=== PATIENT | female | born 1960 | race African-American/Black ===

== ENCOUNTER 2017-06-17 16:37 | Inpatient (IN) | payer OTHER ==
[~2017-06-17] VITALS: Ht 177.8 cm; Wt 81.4 kg
[~2017-06-17 16:37] MED LIST: BENZ1TAB10 PO; CLON0.5T4 PO; INSLAN SQ; LEVO50 PO; PHEN15TA PO; QUET200XR PO; SERT100T12 PO
[2017-06-17 17:03] LABS: GLUCOSE COMMENT 1 Repeated; GLUCOSE COMMENT 2 Doctor Notified; GLUCOSE,POINT OF CARE 593 MG/DL (70-110)
[2017-06-17] MEDS ORDERED: SODIUM CHLORIDE 0.9% 1,000 ML IV ONE (17:45)
[2017-06-17 17:53] LABS: BASOPHILS % (AUTO) 0.2 % (0.0-2.0); EOSINOPHILS % (AUTO) 0.1 % (1.0-6.0); HEMATOCRIT 33.3 % (36-46); HEMOGLOBIN 10.9 g/dL (12.0-16.0); LYMPHOCYTES # (AUTO) 2.1 K/uL (1.0-4.8); LYMPHOCYTES % (AUTO) 13.9 % (22.0-44.0); MEAN CORPUSCULAR HEMOGLOBIN 26.1 pg (26.0-34.0); MEAN CORPUSCULAR HGB CONC 32.8 G/dL (31.0-37.0); MEAN CORPUSCULAR VOLUME 80 fL (80-100); MONOCYTES % (AUTO) 6.6 % (2.0-9.0); NEUTROPHILS # (AUTO) 12.2 K/uL (1.8-7.7); NEUTROPHILS % (AUTO) 79.2 % (40.0-70.0); PLATELET COUNT (AUTO) 563 K/uL (150-450); RED BLOOD CELL COUNT(AUTO) 4.17 MIL/uL (4.00-5.20); WHITE BLOOD COUNT (AUTO) 15.4 K/uL (4.5-11.0)
[2017-06-17 18:16] LABS: ALANINE AMINOTRANSFERASE 11 U/L (12-78); ALBUMIN 2.5 g/dL (3.4-5.0); ANION GAP 12 mmol/L (8-16); ASPARTATE AMINOTRANSFERASE 12 U/L (15-37); BILIRUBIN,TOTAL 0.4 mg/dL (0.1-1.0); CALCIUM, TOTAL 8.5 mg/dL (8.8-10.5); CARBON DIOXIDE 26 mmol/L (22-29); CHLORIDE 87 mmol/L (98-107); CREATININE 0.96 mg/dL (0.60-1.30); GLOMERULAR FILTR. RATE CALC > 60 mL/min (>60); PHOSPHORUS 2.5 mg/dL (2.5-4.9); POTASSIUM 3.1 mmol/L (3.5-5.1); SODIUM SERUM 125 mmol/L (136-145); TOTAL PROTEIN, SERUM 8.1 g/dL (6.4-8.2); UREA NITROGEN, BLOOD 5 mg/dL (7-18)
[2017-06-17 18:27] LABS: LACTIC ACID 2.4 mmol/L (0.4-2.0)
[2017-06-17] MEDS ORDERED: POTASSIUM CHLORIDE 40 MEQ in SODIUM CHLORIDE 0.45% 1,000 ML IV PRN (18:33)
[2017-06-17] MEDS ORDERED: INSULIN REGULAR, HUMAN 100 UNITS in SODIUM CHLORIDE 0.9% 99 ML IV PRN ×2 (18:33)
[2017-06-17] MEDS ORDERED: SODIUM CHLORIDE 0.9% 1,000 ML IV SCH (18:33)
[2017-06-17] MEDS ORDERED: DEXTROSE 5%-0.45% SODIUM CHL 1,000 ML IV PRN (18:33)
[2017-06-17] MEDS ORDERED: SODIUM CHLORIDE 0.45% 1,000 ML IV PRN (18:33)
[2017-06-17] MEDS ORDERED: POTASSIUM CHL 20 MEQ/0.45% NS 1,000 ML IV PRN (18:33)
[2017-06-17] MEDS ORDERED: POTASSIUM CHLORIDE 20 MEQ ER TABLET PO ONE (18:45)
[2017-06-17] MEDS ORDERED: DEXTROSE 50%-WATER 25 GM/50 ML SYRINGE IVP PRN ×2 (18:45→23:30)
[2017-06-17] MEDS ORDERED: POTASSIUM PHOS,M-BASIC-D-BASIC 20 MMOL in SODIUM CHLORIDE 0.45% 500 ML IV PRN (18:45)
[2017-06-17] MEDS ORDERED: INSULIN REGULAR, HUMAN 100 UNITS/ML IVP PRN (18:45)
[2017-06-17] MEDS ORDERED: POTASSIUM CHL 20 MEQ/0.9% NS 1,000 ML IV ONE (19:00)
[2017-06-17 19:46] LABS: REFLEX LACTIC ACID? YES YES
[2017-06-17 20:23] LABS: GLUCOSE COMMENT 2 Doctor Notified; GLUCOSE,POINT OF CARE 406 MG/DL (70-110)
[2017-06-17] MEDS ORDERED: ACETAMINOPHEN 325 MG TABLET PO PRN ×2 (20:45→21:00)
[2017-06-17] MEDS ORDERED: ONDANSETRON HCL 4 MG/2 ML VIAL IVP PRN ×2 (20:45→21:00)
[2017-06-17 20:55] LABS: APPEARANCE,URINE CLOUDY (CLEAR); GLUCOSE, URINE (UA) >=1000 mg/dL (NEGATIVE); KETONES,URINE NEGATIVE (NEGATIVE); LEUKOCYTE ESTERASE ,URINE SMALL (NEGATIVE); OCCULT BLOOD,URINE SMALL (NEGATIVE); PROTEIN,URINE NEGATIVE (NEGATIVE)
[2017-06-17] MEDS ORDERED: MAGNESIUM HYDROXIDE SUSPENSION 30 ML UDCUP PO PRN (21:00)
[2017-06-17 21:01] LABS: ANION GAP 8 mmol/L (8-16); CARBON DIOXIDE 28 mmol/L (22-29); CHLORIDE 90 mmol/L (98-107); CREATININE 0.87 mg/dL (0.60-1.30); GLOMERULAR FILTR. RATE CALC > 60 mL/min (>60); POTASSIUM 3.2 mmol/L (3.5-5.1); SODIUM SERUM 126 mmol/L (136-145); UREA NITROGEN, BLOOD 4 mg/dL (7-18)
[2017-06-17 21:14] LABS: ADD UA MICROSCOPIC YES
[2017-06-17 21:27] LABS: SQUAMOUS EPITHELIAL CELL,UR Rare /LPF (None Seen); WBC,URINE 26-50 /HPF (0-5)
[2017-06-17 21:43] LABS: GLUCOSE COMMENT 1 Doctor Notified; GLUCOSE COMMENT 2 Repeated; GLUCOSE,POINT OF CARE 359 MG/DL (70-110)
[2017-06-17 22:00] VITALS: BP 169/90
[2017-06-17] MEDS: DOCUSATE SODIUM 100 MG CAPSULE PO SCH (22:34)
[2017-06-17 22:47] LABS: ANION GAP 7 mmol/L (8-16); CARBON DIOXIDE 29 mmol/L (22-29); CHLORIDE 94 mmol/L (98-107); CREATININE 0.77 mg/dL (0.60-1.30); GLOMERULAR FILTR. RATE CALC > 60 mL/min (>60); POTASSIUM 3.9 mmol/L (3.5-5.1); SODIUM SERUM 130 mmol/L (136-145); UREA NITROGEN, BLOOD 3 mg/dL (7-18)
[2017-06-17] MEDS ORDERED: POTASSIUM CHLORIDE 20 MEQ ER TABLET PO PRN ×2 (23:45)
[2017-06-17] MEDS ORDERED: POTASSIUM CHL 10 MEQ/WATER 50 ML IV PRN ×2 (23:45)
[2017-06-17] MEDS: HEPARIN SODIUM,PORCINE 5,000 UNITS/ML VIAL SQ SCH (23:57)
[2017-06-17] MEDS: INSULIN ASPART 100 UNITS/ML SQ PRN (23:58)
[2017-06-18] VITALS (9 sets, daily range): BP systolic 110–164; BP diastolic 35–91
[2017-06-18] MEDS ORDERED: MAGNESIUM SULFATE 4 GM/WATER 100 ML IV PRN
[2017-06-18] MEDS ORDERED: MAGNESIUM OXIDE 400 MG TABLET PO PRN
[2017-06-18] MEDS ORDERED: MAGNESIUM SULFATE 2 GM in DEXTROSE 5%-WATER 50 ML IV PRN ×2
[2017-06-18] MEDS: SODIUM CHLORIDE 0.9% 1,000 ML IV SCH ×2 (00:19→10:34)
[2017-06-18] MEDS ORDERED: INFLUENZA VIRUS VACCINE QVS 2017-18 (3YR+)/PF 60 MCG/0.5 ML SYRINGE IM ONE (01:45)
[2017-06-18] MEDS ORDERED: -PHARMACY VACCINE NOTE- MISC ONE ×2 (01:45)
[2017-06-18] MEDS: INSULIN ASPART 100 UNITS/ML SQ PRN ×5 (03:38→20:48)
[2017-06-18] MEDS ORDERED: PNEUMOCOCCAL VACCINE POLYVALENT 0.5 ML VIAL [PPSV23] IM ONE (05:30)
[2017-06-18 05:31] LABS: ANION GAP 7 mmol/L (8-16); CALCIUM, TOTAL 8.2 mg/dL (8.8-10.5); CARBON DIOXIDE 28 mmol/L (22-29); CHLORIDE 98 mmol/L (98-107); CREATININE 0.76 mg/dL (0.60-1.30); GLOMERULAR FILTR. RATE CALC > 60 mL/min (>60); POTASSIUM 3.3 mmol/L (3.5-5.1); SODIUM SERUM 133 mmol/L (136-145); UREA NITROGEN, BLOOD 3 mg/dL (7-18)
[2017-06-18 06:19] LABS: HEMOGLOBIN A1C 12.7 % (4.5-6.2)
[2017-06-18 06:20] LABS: BASOPHILS % (AUTO) 0.3 % (0.0-2.0); EOSINOPHILS % (AUTO) 0.2 % (1.0-6.0); HEMATOCRIT 32.9 % (36-46); HEMOGLOBIN 10.7 g/dL (12.0-16.0); LYMPHOCYTES # (AUTO) 2.4 K/uL (1.0-4.8); LYMPHOCYTES % (AUTO) 11.7 % (22.0-44.0); MEAN CORPUSCULAR HEMOGLOBIN 25.7 pg (26.0-34.0); MEAN CORPUSCULAR HGB CONC 32.4 G/dL (31.0-37.0); MEAN CORPUSCULAR VOLUME 79 fL (80-100); MONOCYTES % (AUTO) 4.7 % (2.0-9.0); NEUTROPHILS # (AUTO) 16.9 K/uL (1.8-7.7); NEUTROPHILS % (AUTO) 83.1 % (40.0-70.0); PLATELET COUNT (AUTO) 504 K/uL (150-450); RED BLOOD CELL COUNT(AUTO) 4.14 MIL/uL (4.00-5.20); RED CELL DISTRIBUTION WIDTH 13.5 % (11.5-14.5); WHITE BLOOD COUNT (AUTO) 20.3 K/uL (4.5-11.0)
[2017-06-18] MEDS ORDERED: SODIUM CHLORIDE 0.9% 250 ML IV ONE (06:47)
[2017-06-18] MEDS: HEPARIN SODIUM,PORCINE 5,000 UNITS/ML VIAL SQ SCH ×2 (08:13→17:53)
[2017-06-18] MEDS: DOCUSATE SODIUM 100 MG CAPSULE PO SCH ×2 (08:13→20:45)
[2017-06-18] MEDS: PANTOPRAZOLE SODIUM 40 MG DR TABLET PO SCH (08:14)
[2017-06-18] MEDS: CefTRIAXone 1 GM/DEXTROSE 50 ML IV SCH (10:34)
[2017-06-18 19:57] LABS: GLUCOSE COMMENT 1 Received Meds; GLUCOSE,POINT OF CARE 268 MG/DL (70-110)
[2017-06-18] MEDS: INSULIN GLARGINE,HUM.REC.ANLOG 100 UNITS/ML SQ SCH (20:48)
[2017-06-19] MEDS: HEPARIN SODIUM,PORCINE 5,000 UNITS/ML VIAL SQ SCH ×4 (01:00→23:38)
[2017-06-19] MEDS: SODIUM CHLORIDE 0.9% 1,000 ML IV SCH ×2 (01:04→17:02)
[2017-06-19 03:36] VITALS: BP 117/68
[2017-06-19 05:23] LABS: GLUCOSE COMMENT 1 Received Meds; GLUCOSE,POINT OF CARE 214 MG/DL (70-110)
[2017-06-19 05:23] LABS: GLUCOSE COMMENT 1 Received Meds; GLUCOSE,POINT OF CARE 355 MG/DL (70-110)
[2017-06-19 05:23] LABS: GLUCOSE,POINT OF CARE 136 MG/DL (70-110)
[2017-06-19 05:23] LABS: GLUCOSE,POINT OF CARE 254 MG/DL (70-110)
[2017-06-19 05:52] LABS: GLUCOSE COMMENT 1 Received Meds; GLUCOSE,POINT OF CARE 200 MG/DL (70-110)
[2017-06-19] MEDS: INSULIN ASPART 100 UNITS/ML SQ PRN ×4 (06:50→20:26)
[2017-06-19 07:15] LABS: BASOPHILS % (AUTO) 0.3 % (0.0-2.0); EOSINOPHILS % (AUTO) 0.2 % (1.0-6.0); HEMATOCRIT 31.5 % (36-46); HEMOGLOBIN 10.4 g/dL (12.0-16.0); LYMPHOCYTES # (AUTO) 1.8 K/uL (1.0-4.8); LYMPHOCYTES % (AUTO) 9.3 % (22.0-44.0); MEAN CORPUSCULAR HEMOGLOBIN 26.1 pg (26.0-34.0); MEAN CORPUSCULAR HGB CONC 33.1 G/dL (31.0-37.0); MEAN CORPUSCULAR VOLUME 79 fL (80-100); MONOCYTES % (AUTO) 5.1 % (2.0-9.0); NEUTROPHILS # (AUTO) 16.4 K/uL (1.8-7.7); NEUTROPHILS % (AUTO) 85.1 % (40.0-70.0); PLATELET COUNT (AUTO) 552 K/uL (150-450); WHITE BLOOD COUNT (AUTO) 19.2 K/uL (4.5-11.0)
[2017-06-19 07:27] LABS: ANION GAP 10 mmol/L (8-16); CARBON DIOXIDE 24 mmol/L (22-29); CHLORIDE 97 mmol/L (98-107); CREATININE 0.58 mg/dL (0.60-1.30); GLOMERULAR FILTR. RATE CALC > 60 mL/min (>60); SODIUM SERUM 131 mmol/L (136-145); UREA NITROGEN, BLOOD 3 mg/dL (7-18)
[2017-06-19 07:29] VITALS: BP 125/57
[2017-06-19] MEDS: PANTOPRAZOLE SODIUM 40 MG DR TABLET PO SCH (08:55)
[2017-06-19] MEDS: DOCUSATE SODIUM 100 MG CAPSULE PO SCH ×2 (08:55→20:26)
[2017-06-19] MEDS: CefTRIAXone 1 GM/DEXTROSE 50 ML IV SCH (09:03)
[2017-06-19 11:45] VITALS: BP 118/67
[2017-06-19 16:11] VITALS: BP 128/70
[2017-06-19 19:46] VITALS: BP 100/51
[2017-06-19] MEDS: INSULIN GLARGINE,HUM.REC.ANLOG 100 UNITS/ML SQ SCH (20:27)
[2017-06-19 23:24] VITALS: BP 110/67
[2017-06-20 01:53] LABS: GLUCOSE,POINT OF CARE 206 MG/DL (70-110)
[2017-06-20] MEDS: SODIUM CHLORIDE 0.9% 1,000 ML IV SCH (03:12)
[2017-06-20 04:30] VITALS: BP 156/69
[2017-06-20 06:06] LABS: BASOPHILS % (AUTO) 0.3 % (0.0-2.0); EOSINOPHILS % (AUTO) 0.3 % (1.0-6.0); HEMATOCRIT 34.5 % (36-46); HEMOGLOBIN 11.2 g/dL (12.0-16.0); LYMPHOCYTES # (AUTO) 1.4 K/uL (1.0-4.8); LYMPHOCYTES % (AUTO) 10.5 % (22.0-44.0); MEAN CORPUSCULAR HEMOGLOBIN 25.9 pg (26.0-34.0); MEAN CORPUSCULAR HGB CONC 32.5 G/dL (31.0-37.0); MEAN CORPUSCULAR VOLUME 80 fL (80-100); MONOCYTES # (AUTO) 0.6 K/uL (0.1-1.0); MONOCYTES % (AUTO) 4.5 % (2.0-9.0); NEUTROPHILS # (AUTO) 11.1 K/uL (1.8-7.7); NEUTROPHILS % (AUTO) 84.4 % (40.0-70.0); PLATELET COUNT (AUTO) 613 K/uL (150-450); RED BLOOD CELL COUNT(AUTO) 4.32 MIL/uL (4.00-5.20); RED CELL DISTRIBUTION WIDTH 14.2 % (11.5-14.5); WHITE BLOOD COUNT (AUTO) 13.1 K/uL (4.5-11.0)
[2017-06-20] MEDS: INSULIN ASPART 100 UNITS/ML SQ PRN ×2 (06:18→11:37)
[2017-06-20 07:49] VITALS: BP 137/83
[2017-06-20] MEDS: DOCUSATE SODIUM 100 MG CAPSULE PO SCH (08:48)
[2017-06-20] MEDS: PANTOPRAZOLE SODIUM 40 MG DR TABLET PO SCH (08:48)
[2017-06-20] MEDS: HEPARIN SODIUM,PORCINE 5,000 UNITS/ML VIAL SQ SCH (08:49)
[2017-06-20] MEDS: CefTRIAXone 1 GM/DEXTROSE 50 ML IV SCH (08:49)
[2017-06-20 09:00] LABS: GLUCOSE,POINT OF CARE 281 MG/DL (70-110)
[2017-06-20 11:46] VITALS: BP 146/82
[2017-06-20] MEDS ORDERED: INSLAN SQ (14:07)
[2017-06-20] MEDS ORDERED: CIP250 PO (14:07)
[2017-06-20] MEDS ORDERED: CHOL200012 PO (14:10)
[2017-06-22 06:43] LABS: GLUCOSE COMMENT 1 Received Meds; GLUCOSE,POINT OF CARE 246 MG/DL (70-110)
[2017-06-22 06:43] LABS: GLUCOSE COMMENT 1 Received Meds; GLUCOSE,POINT OF CARE 235 MG/DL (70-110)
[2017-06-22 06:43] LABS: GLUCOSE COMMENT 1 Received Meds; GLUCOSE,POINT OF CARE 257 MG/DL (70-110)
[2017-06-22 06:48] LABS: GLUCOSE COMMENT 1 Repeated; GLUCOSE,POINT OF CARE 265 MG/DL (70-110)
== END 2017-06-20 15:30 | disposition home or self-care (01) | DRG 420 ==
LOC: EMS 16:39 → ICU 20:55 → 6N 06-18 13:10
PROVIDERS: ADMIT Internal Medicine; ATTEND Internal Medicine
DX: E11.10 Type 2 diabetes mellitus with ketoacidosis without coma (principal); E44.0 Moderate protein-calorie malnutrition; F20.9 Schizophrenia, unspecified; E87.1 Hypo-osmolality and hyponatremia; N39.0 Urinary tract infection, site not specified; E55.9 Vitamin D deficiency, unspecified; F17.210 Nicotine dependence, cigarettes, uncomplicated; E87.6 Hypokalemia; F99 Mental disorder, not otherwise specified; B96.1 Klebsiella pneumoniae [K. pneumoniae] as the cause of diseases classified elsewhere; F41.9 Anxiety disorder, unspecified; J45.909 Unspecified asthma, uncomplicated; Z79.4 Long term (current) use of insulin; Z68.25 Body mass index [BMI] 25.0-25.9, adult; Z91.19 Patient's noncompliance with other medical treatment and regimen; Z82.5 Family history of asthma and other chronic lower respiratory diseases; Z83.3 Family history of diabetes mellitus; Z28.21 Immunization not carried out because of patient refusal; Z79.899 Other long term (current) drug therapy; Z71.6 Tobacco abuse counseling
CPT/HCPCS: 82010; 82306; 82962; 83036; 83605; 83735; 84100; 84132; 87081; 87086; 90471; 96361; 96365; 99291; J0696; J1644; J1815; J3475; J3480; J7030; J7050; J7060

== ENCOUNTER 2017-07-02 08:35 | Emergency (ER) | payer OTHER ==
[~2017-07-02] VITALS: Ht 177.8 cm; Wt 72.7 kg
[~2017-07-02 08:35] MED LIST changes: -BENZ1TAB10 PO; +CHOL200012 PO; +CIP250 PO; -CLON0.5T4 PO; -PHEN15TA PO; -QUET200XR PO; -SERT100T12 PO
[2017-07-02] MEDS ORDERED: CLOZ25TA4 PO (09:01)
[2017-07-02] MEDS ORDERED: PHEN60TA15 PO (09:01)
[2017-07-02] MEDS ORDERED: QUET25TA PO (09:01)
[2017-07-02] MEDS ORDERED: BENZ1TAB10 PO (09:01)
[2017-07-02 09:03] LABS: GLUCOSE,POINT OF CARE 331 MG/DL (70-110)
[2017-07-02 11:39] LABS: BASOPHILS % (AUTO) 0.5 % (0.0-2.0); EOSINOPHILS % (AUTO) 0.5 % (1.0-6.0); HEMOGLOBIN 11.4 g/dL (12.0-16.0); LYMPHOCYTES # (AUTO) 2.8 K/uL (1.0-4.8); LYMPHOCYTES % (AUTO) 24.4 % (22.0-44.0); MEAN CORPUSCULAR HGB CONC 32.6 G/dL (31.0-37.0); MEAN CORPUSCULAR VOLUME 80 fL (80-100); MONOCYTES # (AUTO) 0.7 K/uL (0.1-1.0); MONOCYTES % (AUTO) 6.5 % (2.0-9.0); NEUTROPHILS # (AUTO) 7.7 K/uL (1.8-7.7); NEUTROPHILS % (AUTO) 68.1 % (40.0-70.0); PLATELET COUNT (AUTO) 543 K/uL (150-450); RED BLOOD CELL COUNT(AUTO) 4.39 MIL/uL (4.00-5.20); RED CELL DISTRIBUTION WIDTH 14.3 % (11.5-14.5); WHITE BLOOD COUNT (AUTO) 11.3 K/uL (4.5-11.0)
[2017-07-02 11:52] LABS: ANION GAP 7 mmol/L (8-16); CALCIUM, TOTAL 9.1 mg/dL (8.8-10.5); CARBON DIOXIDE 32 mmol/L (22-29); CHLORIDE 94 mmol/L (98-107); CREATININE 0.79 mg/dL (0.60-1.30); GLOMERULAR FILTR. RATE CALC > 60 mL/min (>60); POTASSIUM 3.9 mmol/L (3.5-5.1); SODIUM SERUM 133 mmol/L (136-145); UREA NITROGEN, BLOOD 6 mg/dL (7-18)
[2017-07-02 11:58] LABS: ALANINE AMINOTRANSFERASE 9 U/L (12-78); ASPARTATE AMINOTRANSFERASE 11 U/L (15-37); BILIRUBIN,TOTAL 0.6 mg/dL (0.1-1.0); TOTAL PROTEIN, SERUM 8.7 g/dL (6.4-8.2)
[2017-07-02 12:28] VITALS: BP 112/70
[2017-07-02] MEDS ORDERED: TraMADol HCL 50 MG TABLET PO ONE (12:30)
== END 2017-07-02 12:31 | disposition home or self-care (01) ==
LOC: EMS 08:36
DX: L03.116 Cellulitis of left lower limb (principal); J45.909 Unspecified asthma, uncomplicated; E11.9 Type 2 diabetes mellitus without complications; F17.210 Nicotine dependence, cigarettes, uncomplicated; F14.90 Cocaine use, unspecified, uncomplicated
CPT/HCPCS: 82962; 93971; 99285

== ENCOUNTER 2017-07-07 08:54 | Inpatient (IN) | payer OTHER ==
[~2017-07-07] VITALS: Ht 173.5 cm; Wt 73.4 kg
[~2017-07-07 08:54] MED LIST changes: +BENZ1TAB10 PO; +CLOZ25TA4 PO; +PHEN60TA15 PO; +QUET25TA PO
[2017-07-07 09:18] LABS: GLUCOSE COMMENT 1 Repeated; GLUCOSE COMMENT 3 Doctor Notified; GLUCOSE,POINT OF CARE 527 MG/DL (70-110)
[2017-07-07] MEDS ORDERED: SODIUM CHLORIDE 0.9% 1,000 ML IV ONE ×4 (09:45→15:45)
[2017-07-07 10:16] LABS: BASOPHILS % (AUTO) 0.1 % (0.0-2.0); EOSINOPHILS % (AUTO) 0.4 % (1.0-6.0); HEMATOCRIT 32.7 % (36-46); HEMOGLOBIN 10.6 g/dL (12.0-16.0); LYMPHOCYTES # (AUTO) 1.1 K/uL (1.0-4.8); LYMPHOCYTES % (AUTO) 8.6 % (22.0-44.0); MEAN CORPUSCULAR HEMOGLOBIN 25.8 pg (26.0-34.0); MEAN CORPUSCULAR HGB CONC 32.2 G/dL (31.0-37.0); MEAN CORPUSCULAR VOLUME 80 fL (80-100); MONOCYTES # (AUTO) 0.4 K/uL (0.1-1.0); MONOCYTES % (AUTO) 3.2 % (2.0-9.0); NEUTROPHILS # (AUTO) 11.3 K/uL (1.8-7.7); PLATELET COUNT (AUTO) 490 K/uL (150-450); RED BLOOD CELL COUNT(AUTO) 4.09 MIL/uL (4.00-5.20); RED CELL DISTRIBUTION WIDTH 14.6 % (11.5-14.5); WHITE BLOOD COUNT (AUTO) 12.9 K/uL (4.5-11.0)
[2017-07-07 10:25] LABS: NEUTROPHILS % (AUTO) 87.7 % (40.0-70.0)
[2017-07-07] MEDS ORDERED: INSULIN REGULAR, HUMAN 100 UNITS/ML IVP ONE (10:30)
[2017-07-07 10:39] LABS: APPEARANCE,URINE TURBID (CLEAR); GLUCOSE, URINE (UA) >=1000 mg/dL (NEGATIVE); KETONES,URINE NEGATIVE (NEGATIVE); LEUKOCYTE ESTERASE ,URINE LARGE (NEGATIVE); OCCULT BLOOD,URINE MODERATE (NEGATIVE); PH,URINE 5.5 (5.0-8.0); PROTEIN,URINE SEE CONFIRM (NEGATIVE)
[2017-07-07 10:45] LABS: SULFOSALICYLIC ACID,URINE 2+ (Negative)
[2017-07-07 10:47] LABS: WBC,URINE >100 /HPF (0-5)
[2017-07-07 10:48] LABS: SQUAMOUS EPITHELIAL CELL,UR Few /LPF (None Seen)
[2017-07-07 11:06] LABS: LACTIC ACID 2.1 mmol/L (0.4-2.0)
[2017-07-07] MEDS ORDERED: CefTRIAXone 1 GM/DEXTROSE 50 ML IV ONE (11:15)
[2017-07-07 11:51] LABS: ALANINE AMINOTRANSFERASE 10 U/L (12-78); ALBUMIN 2.8 g/dL (3.4-5.0); ANION GAP 13 mmol/L (8-16); ASPARTATE AMINOTRANSFERASE 10 U/L (15-37); BILIRUBIN,TOTAL 0.4 mg/dL (0.1-1.0); CALCIUM, TOTAL 9.1 mg/dL (8.8-10.5); CARBON DIOXIDE 24 mmol/L (22-29); CHLORIDE 91 mmol/L (98-107); CREATININE 1.39 mg/dL (0.60-1.30); GLOMERULAR FILTR. RATE CALC 47 mL/min (>60); POTASSIUM 3.8 mmol/L (3.5-5.1); SODIUM SERUM 128 mmol/L (136-145); TOTAL PROTEIN, SERUM 8.3 g/dL (6.4-8.2); UREA NITROGEN, BLOOD 16 mg/dL (7-18)
[2017-07-07 11:53] LABS: GLUCOSE,POINT OF CARE 326 MG/DL (70-110)
[2017-07-07 12:12] LABS: REFLEX LACTIC ACID? YES YES
[2017-07-07] MEDS ORDERED: ACETAMINOPHEN 325 MG TABLET PO PRN ×2 (12:45→15:45)
[2017-07-07] MEDS ORDERED: 0.9% SODIUM CHLORIDE 10 ML SYRINGE IVP PRN (12:45)
[2017-07-07 12:47] LABS: GLUCOSE,POINT OF CARE 283 MG/DL (70-110)
[2017-07-07 14:02] LABS: GLUCOSE,POINT OF CARE 234 MG/DL (70-110)
[2017-07-07 15:11] VITALS: BP 119/67
[2017-07-07] MEDS ORDERED: HYDROCODONE/ACETAMINOPHEN 5-325 MG TABLET PO PRN (15:45)
[2017-07-07] MEDS ORDERED: ONDANSETRON HCL 4 MG/2 ML VIAL IVP PRN (15:45)
[2017-07-07] MEDS ORDERED: DEXTROSE 50%-WATER 25 GM/50 ML SYRINGE IVP PRN (15:45)
[2017-07-07] MEDS ORDERED: MORPHINE SULFATE 2 MG/ML SYRINGE IVP PRN (15:45)
[2017-07-07] MEDS ORDERED: INSULIN ASPART 100 UNITS/ML SQ PRN (15:45)
[2017-07-07] MEDS ORDERED: BISACODYL 10 MG RECTAL RECTAL SUPPOSITORY PR PRN (15:45)
[2017-07-07] MEDS ORDERED: ZOLPIDEM TARTRATE 5 MG TABLET PO PRN (15:45)
[2017-07-07] MEDS ORDERED: MAGNESIUM HYDROXIDE SUSPENSION 30 ML UDCUP PO PRN (15:45)
[2017-07-07] MEDS ORDERED: PNEUMOCOCCAL VACCINE POLYVALENT 0.5 ML VIAL [PPSV23] IM ONE (16:00)
[2017-07-07] MEDS ORDERED: HEPARIN SODIUM,PORCINE 5,000 UNITS/ML VIAL SQ SCH (16:00)
[2017-07-07] MEDS ORDERED: VANCOMYCIN HCL 1 GM/D5% WATER 200 ML IV ONE (17:00)
[2017-07-07] MEDS ORDERED: INSULIN DETEMIR 100 UNITS/ML SQ SCH (21:00)
[2017-07-07] MEDS ORDERED: DOCUSATE SODIUM 100 MG CAPSULE PO SCH (21:00)
[2017-07-08] MEDS ORDERED: VANCOMYCIN HCL 750 MG in DEXTROSE 5%-WATER 150 ML IV SCH (07:00)
[2017-07-08] MEDS ORDERED: CHOLECALCIFEROL (VIT D3) 1,000 UNITS TABLET PO SCH (09:00)
[2017-07-08] MEDS ORDERED: PANTOPRAZOLE SODIUM 40 MG DR TABLET PO SCH (09:00)
== END 2017-07-07 15:45 | disposition left against medical advice (07) | DRG 720 ==
LOC: EMS 08:55 → 5S 13:14
PROVIDERS: ADMIT Internal Medicine; ATTEND Internal Medicine
DX: A41.9 Sepsis, unspecified organism (principal); E43 Unspecified severe protein-calorie malnutrition; E11.65 Type 2 diabetes mellitus with hyperglycemia; E03.9 Hypothyroidism, unspecified; D64.9 Anemia, unspecified; E87.1 Hypo-osmolality and hyponatremia; F20.9 Schizophrenia, unspecified; J45.909 Unspecified asthma, uncomplicated; L03.116 Cellulitis of left lower limb; N39.0 Urinary tract infection, site not specified; F31.9 Bipolar disorder, unspecified; F17.210 Nicotine dependence, cigarettes, uncomplicated; Z68.24 Body mass index [BMI] 24.0-24.9, adult; Z79.4 Long term (current) use of insulin; Z83.3 Family history of diabetes mellitus
CPT/HCPCS: 82962; 83605; 87040; 87086; 96374; 96375; 99291; J0696; J1815; J3370; J7030; J7060

== ENCOUNTER 2018-03-11 17:39 | Emergency (ER) | payer OTHER ==
[~2018-03-11] VITALS: Ht 177.8 cm; Wt 77.3 kg
[~2018-03-11 17:39] MED LIST changes: -BENZ1TAB10 PO; -CIP250 PO; -CLOZ25TA4 PO; -LEVO50 PO; -PHEN60TA15 PO; -QUET25TA PO
[2018-03-11] MEDS ORDERED: METF500T6 PO (17:50)
[2018-03-11 17:59] LABS: GLUCOSE,POINT OF CARE 394 MG/DL (70-110)
[2018-03-11 18:10] LABS: BASOPHILS % (AUTO) 0.4 % (0.0-2.0); EOSINOPHILS % (AUTO) 0.1 % (1.0-6.0); HEMATOCRIT 42.9 % (36-46); HEMOGLOBIN 14.3 g/dL (12.0-16.0); LYMPHOCYTES # (AUTO) 1.8 K/uL (1.0-4.8); LYMPHOCYTES % (AUTO) 12.2 % (22.0-44.0); MEAN CORPUSCULAR HGB CONC 33.4 G/dL (31.0-37.0); MEAN CORPUSCULAR VOLUME 78 fL (80-100); MONOCYTES # (AUTO) 0.9 K/uL (0.1-1.0); MONOCYTES % (AUTO) 6.1 % (2.0-9.0); NEUTROPHILS # (AUTO) 11.7 K/uL (1.8-7.7); NEUTROPHILS % (AUTO) 81.2 % (40.0-70.0); PLATELET COUNT (AUTO) 373 K/uL (150-450); RED BLOOD CELL COUNT(AUTO) 5.51 MIL/uL (4.00-5.20); RED CELL DISTRIBUTION WIDTH 14.6 % (11.5-14.5)
[2018-03-11 18:40] LABS: ALBUMIN 3.7 g/dL (3.4-5.0); BILIRUBIN,TOTAL 0.8 mg/dL (0.1-1.0); CREATININE 1.14 mg/dL (0.60-1.30); POTASSIUM 4.1 mmol/L (3.5-5.1); TOTAL PROTEIN, SERUM 8.4 g/dL (6.4-8.2)
[2018-03-11] MEDS ORDERED: ONDANSETRON HCL 4 MG/2 ML VIAL IVP ONE (19:15)
[2018-03-11] MEDS ORDERED: SODIUM CHLORIDE 1 GM TABLET PO ONE (19:15)
[2018-03-11] MEDS ORDERED: SODIUM CHLORIDE 0.9% 1,000 ML IV ONE ×2 (19:15)
[2018-03-11 21:28] LABS: ANION GAP 8 mmol/L (8-16); CALCIUM, TOTAL 7.9 mg/dL (8.8-10.5); CARBON DIOXIDE 30 mmol/L (22-29); CHLORIDE 93 mmol/L (98-107); CREATININE 0.95 mg/dL (0.60-1.30); GLOMERULAR FILTR. RATE CALC > 60 mL/min (>60); GLUCOSE,RANDOM 307 mg/dL (70-110); POTASSIUM 3.5 mmol/L (3.5-5.1); SODIUM SERUM 131 mmol/L (136-145); UREA NITROGEN, BLOOD 17 mg/dL (7-18)
[2018-03-11 21:33] LABS: ALANINE AMINOTRANSFERASE 15 U/L (12-78); ALBUMIN 3.4 g/dL (3.4-5.0); ALKALINE PHOSPHATASE 156 U/L (46-116); ASPARTATE AMINOTRANSFERASE 14 U/L (15-37); BILIRUBIN,TOTAL 0.7 mg/dL (0.1-1.0); TOTAL PROTEIN, SERUM 7.6 g/dL (6.4-8.2)
[2018-03-11 22:48] LABS: APPEARANCE,URINE CLOUDY (CLEAR); BILIRUBIN,URINE NEGATIVE (NEGATIVE); GLUCOSE, URINE (UA) >=1000 mg/dL (NEGATIVE); KETONES,URINE TRACE mg/dL (NEGATIVE); LEUKOCYTE ESTERASE ,URINE NEGATIVE (NEGATIVE); NITRATE,URINE NEGATIVE (NEGATIVE); OCCULT BLOOD,URINE NEGATIVE (NEGATIVE); PROTEIN,URINE NEGATIVE (NEGATIVE); UROBILINOGEN,URINE 0.2 mg/dL (<=1.0)
[2018-03-11 22:55] LABS: RBC,URINE 0-2 /HPF (0-2)
[2018-03-11 22:56] VITALS: BP 165/99
[2018-03-11 22:56] LABS: BACTERIA,URINE Rare /HPF (None Seen); SQUAMOUS EPITHELIAL CELL,UR Rare /LPF (None Seen); WBC,URINE 0-2 /HPF (0-5)
[2018-03-11] MEDS ORDERED: HYDROCODONE/ACETAMINOPHEN 5-325 MG TABLET PO ONE (23:00)
== END 2018-03-11 23:42 | disposition home or self-care (01) ==
LOC: EMS 17:40
DX: R11.2 Nausea with vomiting, unspecified (principal); R19.7 Diarrhea, unspecified; R10.9 Unspecified abdominal pain; E11.9 Type 2 diabetes mellitus without complications; J45.909 Unspecified asthma, uncomplicated; F14.90 Cocaine use, unspecified, uncomplicated; F17.210 Nicotine dependence, cigarettes, uncomplicated
CPT/HCPCS: 36415; 80053; 81001; 82962; 83690; 85025; 93005; 96374; 99285; J2405

== ENCOUNTER 2018-07-15 10:39 | Emergency (ER) | payer OTHER ==
[~2018-07-15] VITALS: Ht 177.8 cm; Wt 77.0 kg
[~2018-07-15 10:39] MED LIST changes: +METF-960 PO
[2018-07-15] MEDS ORDERED: BENZ1TAB10 PO (10:48)
[2018-07-15] MEDS ORDERED: HALO5TAB2 PO (10:48)
[2018-07-15] MEDS ORDERED: QUET25TA PO (10:48)
[2018-07-15 10:59] LABS: GLUCOSE,POINT OF CARE 320 MG/DL (70-110)
[2018-07-15 11:03] VITALS: BP 139/75
[2018-07-15] MEDS ORDERED: LIDOCAINE 1% 10 ML VIAL INJ ONE (11:15)
[2018-07-15] MEDS ORDERED: PERTUSS(ACELL),DIPH,TET VAC/PF 0.5 ML VIAL IM ONE (13:15)
== END 2018-07-15 13:45 | disposition home or self-care (01) ==
LOC: EMS 10:41
DX: S01.81XA Laceration without foreign body of other part of head, initial encounter (principal); F41.9 Anxiety disorder, unspecified; J45.909 Unspecified asthma, uncomplicated; F31.9 Bipolar disorder, unspecified; E11.9 Type 2 diabetes mellitus without complications; F20.9 Schizophrenia, unspecified; F17.210 Nicotine dependence, cigarettes, uncomplicated; F14.90 Cocaine use, unspecified, uncomplicated; Z98.890 Other specified postprocedural states; Z79.4 Long term (current) use of insulin; Z79.899 Other long term (current) drug therapy; W01.190A Fall on same level from slipping, tripping and stumbling with subsequent striking against furniture, initial encounter; Y93.89 Activity, other specified; Y92.89 Other specified places as the place of occurrence of the external cause; Y99.8 Other external cause status
CPT/HCPCS: 12013; 82962; 90471; 90715; 99283; J3490

== ENCOUNTER 2018-07-25 10:07 | Emergency (ER) | payer OTHER ==
[~2018-07-25] VITALS: Ht 177.8 cm; Wt 160.0 kg
[~2018-07-25 10:07] MED LIST changes: +BENZ1TAB10 PO; +HALO5TAB2 PO; +QUET25TA PO
[2018-07-25 10:29] VITALS: BP 135/85
[2018-07-25 10:43] LABS: GLUCOSE,POINT OF CARE 320 MG/DL (70-110)
== END 2018-07-25 12:00 | disposition left against medical advice (07) ==
LOC: EMS 10:10
DX: R73.9 Hyperglycemia, unspecified (principal); Z53.21 Procedure and treatment not carried out due to patient leaving prior to being seen by health care provider

== ENCOUNTER 2018-08-16 16:05 | Emergency (ER) | payer OTHER ==
[~2018-08-16] VITALS: Ht 172.7 cm; Wt 77.0 kg
[2018-08-16 16:19] LABS: GLUCOSE,POINT OF CARE 376 MG/DL (70-110)
[2018-08-16 17:48] LABS: BASOPHILS % (AUTO) 0.4 % (0.0-2.0); EOSINOPHILS % (AUTO) 0.3 % (1.0-6.0); HEMATOCRIT 38.8 % (36-46); HEMOGLOBIN 12.8 g/dL (12.0-16.0); LYMPHOCYTES # (AUTO) 3.2 K/uL (1.0-4.8); LYMPHOCYTES % (AUTO) 26.7 % (22.0-44.0); MEAN CORPUSCULAR VOLUME 79 fL (80-100); MONOCYTES # (AUTO) 0.9 K/uL (0.1-1.0); MONOCYTES % (AUTO) 7.2 % (2.0-9.0); NEUTROPHILS # (AUTO) 7.9 K/uL (1.8-7.7); NEUTROPHILS % (AUTO) 65.4 % (40.0-70.0); PLATELET COUNT (AUTO) 372 K/uL (150-450); RED BLOOD CELL COUNT(AUTO) 4.91 MIL/uL (4.00-5.20); RED CELL DISTRIBUTION WIDTH 14.8 % (11.5-14.5)
[2018-08-16 17:59] LABS: ANION GAP 5 mmol/L (8-16); CALCIUM, TOTAL 8.4 mg/dL (8.8-10.5); CARBON DIOXIDE 31 mmol/L (22-29); CHLORIDE 95 mmol/L (98-107); CREATININE 0.96 mg/dL (0.60-1.30); GLOMERULAR FILTR. RATE CALC > 60 mL/min (>60); GLUCOSE,RANDOM 359 mg/dL (70-110); POTASSIUM 3.8 mmol/L (3.5-5.1); SODIUM SERUM 131 mmol/L (136-145); UREA NITROGEN, BLOOD 7 mg/dL (7-18)
[2018-08-16 18:14] LABS: ALANINE AMINOTRANSFERASE 17 U/L (12-78); ALBUMIN 3.1 g/dL (3.4-5.0); ALKALINE PHOSPHATASE 125 U/L (46-116); ASPARTATE AMINOTRANSFERASE 14 U/L (15-37); BILIRUBIN,TOTAL 0.3 mg/dL (0.1-1.0); TOTAL PROTEIN, SERUM 7.3 g/dL (6.4-8.2)
[2018-08-16] MEDS ORDERED: PB/HYOSCY/ATR/SCOP/LIDO/MAALOX 55 ML BOTTLE PO ONE (18:15)
[2018-08-16] MEDS ORDERED: SODIUM CHLORIDE 0.9% 1,000 ML IV ONE (18:15)
[2018-08-16 21:30] VITALS: BP 125/66
== END 2018-08-16 21:41 | disposition home or self-care (01) ==
LOC: EMS 16:06
DX: K21.9 Gastro-esophageal reflux disease without esophagitis (principal); F41.9 Anxiety disorder, unspecified; F20.9 Schizophrenia, unspecified; J45.909 Unspecified asthma, uncomplicated; F31.9 Bipolar disorder, unspecified; E11.9 Type 2 diabetes mellitus without complications; F17.210 Nicotine dependence, cigarettes, uncomplicated; Z79.4 Long term (current) use of insulin; Z79.84 Long term (current) use of oral hypoglycemic drugs
CPT/HCPCS: 36415; 71045; 74021; 80053; 82962; 84484; 85025; 93005; 99285; J7030

== ENCOUNTER 2019-02-15 11:01 | Emergency (ER) | payer OTHER ==
[~2019-02-15] VITALS: Ht 172.7 cm; Wt 72.7 kg
[2019-02-15 11:14] LABS: GLUCOSE,POINT OF CARE 357 MG/DL (70-110)
[2019-02-15] MEDS ORDERED: SODIUM CHLORIDE 0.9% 1,000 ML IV ONE (11:45)
[2019-02-15] MEDS ORDERED: ONDANSETRON HCL 4 MG/2 ML VIAL IVP ONE (11:45)
[2019-02-15 12:11] LABS: BASOPHILS % (AUTO) 0.5 % (0.0-2.0); EOSINOPHILS % (AUTO) 0.2 % (1.0-6.0); HEMATOCRIT 43.8 % (36-46); HEMOGLOBIN 14.1 g/dL (12.0-16.0); LYMPHOCYTES # (AUTO) 2.6 K/uL (1.0-4.8); LYMPHOCYTES % (AUTO) 19.5 % (22.0-44.0); MEAN CORPUSCULAR HGB CONC 32.3 G/dL (31.0-37.0); MEAN CORPUSCULAR VOLUME 77 fL (80-100); MONOCYTES % (AUTO) 7.2 % (2.0-9.0); NEUTROPHILS # (AUTO) 9.7 K/uL (1.8-7.7); NEUTROPHILS % (AUTO) 72.6 % (40.0-70.0); PLATELET COUNT (AUTO) 245 K/uL (150-450); RED BLOOD CELL COUNT(AUTO) 5.66 MIL/uL (4.00-5.20); RED CELL DISTRIBUTION WIDTH 14.2 % (11.5-14.5)
[2019-02-15 12:17] LABS: ACETONE,BLOOD NEGATIVE (NEGATIVE)
[2019-02-15 12:25] LABS: ANION GAP 9 mmol/L (8-16); CARBON DIOXIDE 27 mmol/L (22-29); CHLORIDE 94 mmol/L (98-107); CREATININE 1.21 mg/dL (0.60-1.30); GLOMERULAR FILTR. RATE CALC 55 mL/min (>60); GLUCOSE,RANDOM 319 mg/dL (70-110); SODIUM SERUM 130 mmol/L (136-145); UREA NITROGEN, BLOOD 21 mg/dL (7-18)
[2019-02-15 12:30] LABS: ALANINE AMINOTRANSFERASE 10 U/L (12-78); ALBUMIN 3.6 g/dL (3.4-5.0); ALKALINE PHOSPHATASE 153 U/L (46-116); ASPARTATE AMINOTRANSFERASE 20 U/L (15-37); BILIRUBIN,TOTAL 0.7 mg/dL (0.1-1.0); HCG,QUANTITATIVE 1 mIU/mL (0-6); LIPASE 516 U/L (73-393); TOTAL PROTEIN, SERUM 7.9 g/dL (6.4-8.2)
[2019-02-15] MEDS ORDERED: SODIUM CHLORIDE 0.9% 100 ML ONE (13:35)
[2019-02-15] MEDS ORDERED: IOVERSOL 350 MG/ML 100 ML VIAL ONE (13:35)
[2019-02-15 15:35] VITALS: BP 121/70
== END 2019-02-15 16:15 | disposition home or self-care (01) ==
LOC: EMS 11:01
DX: E11.65 Type 2 diabetes mellitus with hyperglycemia (principal); R10.9 Unspecified abdominal pain; J45.909 Unspecified asthma, uncomplicated; F31.9 Bipolar disorder, unspecified; F20.9 Schizophrenia, unspecified; F17.210 Nicotine dependence, cigarettes, uncomplicated; F14.90 Cocaine use, unspecified, uncomplicated; Z79.84 Long term (current) use of oral hypoglycemic drugs
CPT/HCPCS: 74177; 80053; 82009; 82962; 83690; 84484; 84702; 85025; 93005; 96361; 96374; 99285; J2405; J7030; J7050; Q9967; 82948

== ENCOUNTER 2019-02-28 11:39 | Emergency (ER) | payer OTHER ==
[~2019-02-28] VITALS: Ht 177.8 cm; Wt 72.7 kg
[~2019-02-28 11:39] MED LIST changes: -INSLAN SQ
[2019-02-28 11:59] LABS: GLUCOSE,POINT OF CARE 413 MG/DL (70-110)
[2019-02-28 12:52] LABS: BASOPHILS % (AUTO) 0.3 % (0.0-2.0); EOSINOPHILS % (AUTO) 0.9 % (1.0-6.0); HEMATOCRIT 43.6 % (36-46); HEMOGLOBIN 13.9 g/dL (12.0-16.0); LYMPHOCYTES # (AUTO) 2.4 K/uL (1.0-4.8); LYMPHOCYTES % (AUTO) 30.2 % (22.0-44.0); MEAN CORPUSCULAR HEMOGLOBIN 25.1 pg (26.0-34.0); MEAN CORPUSCULAR HGB CONC 31.9 G/dL (31.0-37.0); MEAN CORPUSCULAR VOLUME 79 fL (80-100); MONOCYTES # (AUTO) 0.4 K/uL (0.1-1.0); MONOCYTES % (AUTO) 5.6 % (2.0-9.0); NEUTROPHILS # (AUTO) 4.9 K/uL (1.8-7.7); PLATELET COUNT (AUTO) 335 K/uL (150-450); RED BLOOD CELL COUNT(AUTO) 5.54 MIL/uL (4.00-5.20); RED CELL DISTRIBUTION WIDTH 14.1 % (11.5-14.5)
[2019-02-28 13:10] LABS: CALCIUM, TOTAL 9.5 mg/dL (8.8-10.5); CREATININE 1.18 mg/dL (0.60-1.30); POTASSIUM 4.1 mmol/L (3.5-5.1)
[2019-02-28] MEDS ORDERED: SODIUM CHLORIDE 0.9% 1,000 ML IV ONE (13:15)
[2019-02-28 13:16] LABS: ALBUMIN 3.4 g/dL (3.4-5.0); BILIRUBIN,TOTAL 0.2 mg/dL (0.1-1.0); TOTAL PROTEIN, SERUM 7.7 g/dL (6.4-8.2)
[2019-02-28 13:44] LABS: BILIRUBIN,URINE NEGATIVE (NEGATIVE); GLUCOSE, URINE (UA) >=1000 mg/dL (NEGATIVE); KETONES,URINE NEGATIVE (NEGATIVE); LEUKOCYTE ESTERASE ,URINE SMALL (NEGATIVE); NITRATE,URINE NEGATIVE (NEGATIVE); OCCULT BLOOD,URINE NEGATIVE (NEGATIVE); PH,URINE 5.5 (5.0-8.0); PROTEIN,URINE NEGATIVE (NEGATIVE); UROBILINOGEN,URINE 0.2 mg/dL (<=1.0)
[2019-02-28 13:45] LABS: APPEARANCE,URINE SLIGHTLY CLOUDY (CLEAR)
[2019-02-28 13:47] LABS: BACTERIA,URINE Moderate /HPF (None Seen); RBC,URINE 0-2 /HPF (0-2); SQUAMOUS EPITHELIAL CELL,UR Many /LPF (None Seen)
[2019-02-28 15:14] LABS: GLUCOSE,POINT OF CARE 340 MG/DL (70-110)
[2019-02-28 15:17] VITALS: BP 125/88
== END 2019-02-28 15:31 | disposition home or self-care (01) ==
LOC: EMS 11:39
DX: N39.0 Urinary tract infection, site not specified (principal); N83.8 Other noninflammatory disorders of ovary, fallopian tube and broad ligament; E11.65 Type 2 diabetes mellitus with hyperglycemia; J45.909 Unspecified asthma, uncomplicated; F20.9 Schizophrenia, unspecified; F41.9 Anxiety disorder, unspecified; F31.9 Bipolar disorder, unspecified; F14.90 Cocaine use, unspecified, uncomplicated; F17.210 Nicotine dependence, cigarettes, uncomplicated; Z79.84 Long term (current) use of oral hypoglycemic drugs
CPT/HCPCS: 74176; 76705; 87086; 96360

== ENCOUNTER 2019-08-18 13:23 | Emergency (ER) | payer OTHER ==
[~2019-08-18] VITALS: Ht 175.3 cm; Wt 86.4 kg
[2019-08-18 14:12] LABS: GLUCOSE,POINT OF CARE 329 MG/DL (70-110)
[2019-08-18 16:19] VITALS: BP 118/78
== END 2019-08-18 16:25 | disposition home or self-care (01) ==
LOC: EMS 13:25
DX: H00.011 Hordeolum externum right upper eyelid (principal); J45.909 Unspecified asthma, uncomplicated; F41.9 Anxiety disorder, unspecified; F31.9 Bipolar disorder, unspecified; E11.9 Type 2 diabetes mellitus without complications; F20.9 Schizophrenia, unspecified; F17.210 Nicotine dependence, cigarettes, uncomplicated; F14.90 Cocaine use, unspecified, uncomplicated; Z79.84 Long term (current) use of oral hypoglycemic drugs

== ENCOUNTER 2020-09-26 14:09 | Emergency (ER) | payer OTHER ==
[~2020-09-26] VITALS: Ht 180.3 cm; Wt 77.3 kg
[~2020-09-26 14:09] MED LIST changes: +ACET-2865 PO; +AUD NEB; +BISA10SU11 PR; +CEFX2I IV; +CHOL100018 PO; -CHOL200012 PO; +CHOL200016 PO; +DOCU-275 PO; +HALO10 PO; -HALO5TAB2 PO; +HEPA500035 SQ; +HYDR-4061 PO; +INSLAN SQ; +INSU100V SQ; +IPRNEB IH; +METR500 PO; +MOM30 PO; +NICO-803 TD; +QUET100T PO; -QUET25TA PO; +ZOLP-280 PO
[2020-09-26 14:11] VITALS: BP 169/89
== END 2020-09-26 16:13 | disposition left against medical advice (07) ==
LOC: EMS 14:13
DX: M79.672 Pain in left foot (principal); Z53.21 Procedure and treatment not carried out due to patient leaving prior to being seen by health care provider

== ENCOUNTER 2021-07-31 10:19 | Emergency (ER) | payer OTHER ==
[~2021-07-31] VITALS: Ht 177.8 cm; Wt 102.0 kg
[~2021-07-31 10:19] MED LIST changes: +ACET-2247 PO; -ACET-2865 PO; -BISA10SU11 PR; -CEFX2I IV; +CHOL-35 PO; -CHOL100018 PO; -CHOL200016 PO; +DOCU-270 PO; -DOCU-275 PO; -HEPA500035 SQ; -HYDR-4061 PO; -IPRNEB IH; +METF-1211 PO; -METF-960 PO; -METR500 PO; -MOM30 PO; -NICO-803 TD
[2021-07-31 11:08] LABS: BASOPHILS % (AUTO) 0.5 % (0.0-2.0); EOSINOPHILS % (AUTO) 0 % (1.0-6.0); HEMATOCRIT 39.3 % (36-46); HEMOGLOBIN 12.6 g/dL (12.0-16.0); LYMPHOCYTES # (AUTO) 1.8 K/uL (1.0-4.8); LYMPHOCYTES % (AUTO) 8.5 % (22.0-44.0); MEAN CORPUSCULAR VOLUME 78 fL (80-100); MONOCYTES # (AUTO) 1.2 K/uL (0.1-1.0); MONOCYTES % (AUTO) 5.5 % (2.0-9.0); NEUTROPHILS # (AUTO) 18.2 K/uL (1.8-7.7); PLATELET COUNT (AUTO) 218 K/uL (150-450); RED BLOOD CELL COUNT(AUTO) 5.03 MIL/uL (4.00-5.20); RED CELL DISTRIBUTION WIDTH 15.1 % (11.5-14.5)
[2021-07-31 11:09] LABS: NEUTROPHILS % (AUTO) 85.5 % (40.0-70.0)
[2021-07-31 11:22] LABS: ANION GAP 10 mmol/L (8-16); CALCIUM, TOTAL 9.4 mg/dL (8.8-10.5); CARBON DIOXIDE 25 mmol/L (22-29); CHLORIDE 97 mmol/L (98-107); GLOMERULAR FILTR. RATE CALC > 60 mL/min (>60); GLUCOSE,RANDOM 311 mg/dL (70-110); SODIUM SERUM 132 mmol/L (136-145); UREA NITROGEN, BLOOD 11 mg/dL (7-18)
[2021-07-31 11:28] LABS: ALANINE AMINOTRANSFERASE 10 U/L (12-78); ALKALINE PHOSPHATASE 141 U/L (46-116); ASPARTATE AMINOTRANSFERASE 11 U/L (15-37); BILIRUBIN,TOTAL 0.7 mg/dL (0.1-1.0); TOTAL PROTEIN, SERUM 8.3 g/dL (6.4-8.2)
[2021-07-31] MEDS ORDERED: QUEtiapine FUMARATE 100 MG TABLET PO ONE (12:45)
[2021-07-31 13:24] LABS: APPEARANCE,URINE CLOUDY (CLEAR); BILIRUBIN,URINE NEGATIVE (NEGATIVE); GLUCOSE, URINE (UA) >=1000 mg/dL (NEGATIVE); KETONES,URINE >=80 mg/dL (NEGATIVE); LEUKOCYTE ESTERASE ,URINE NEGATIVE (NEGATIVE); NITRATE,URINE NEGATIVE (NEGATIVE); OCCULT BLOOD,URINE TRACE (NEGATIVE); PH,URINE 5.5 (5.0-8.0); PROTEIN,URINE SEE CONFIRM (NEGATIVE); UROBILINOGEN,URINE 0.2 mg/dL (<=1.0)
[2021-07-31 13:29] LABS: AMPHET/METH SCREEN,URINE NEGATIVE (NEGATIVE); BARBITURATE SCREEN, URINE NEGATIVE (NEGATIVE); BENZODIAZEPINES SCREEN,URINE NEGATIVE (NEGATIVE); CANNABINOID SCREEN,URINE NEGATIVE (NEGATIVE); COCAINE SCREEN,URINE NEGATIVE (NEGATIVE); METHADONE SCREEN, URINE NEGATIVE (NEGATIVE); OPIATE SCREEN,URINE NEGATIVE (NEGATIVE)
[2021-07-31 13:30] LABS: PHENCYCLIDINE SCREEN,URINE NEGATIVE (NEGATIVE)
[2021-07-31 13:39] LABS: BACTERIA,URINE None Seen /HPF (None Seen); RBC,URINE None Seen /HPF (0-2); SQUAMOUS EPITHELIAL CELL,UR Few /LPF (None Seen); SULFOSALICYLIC ACID,URINE 4+ (Negative); WBC,URINE 0-2 /HPF (0-5); YEAST,URINE Many /HPF (None Seen)
[2021-07-31] MEDS ORDERED: INSULIN GLARGINE,HUM.REC.ANLOG 100 UNITS/ML SQ ONE (13:45)
[2021-07-31] MEDS ORDERED: FLUCONAZOLE 150 MG TABLET PO ONE (14:00)
[2021-07-31 17:18] VITALS: BP 167/90
== END 2021-07-31 17:28 | disposition home or self-care (01) ==
LOC: EMS 10:19
DX: R51.9 Headache, unspecified (principal); F31.9 Bipolar disorder, unspecified; F17.210 Nicotine dependence, cigarettes, uncomplicated; F14.90 Cocaine use, unspecified, uncomplicated; F41.9 Anxiety disorder, unspecified; N39.0 Urinary tract infection, site not specified; E11.9 Type 2 diabetes mellitus without complications
CPT/HCPCS: 36415; 70450; 71045; 80053; 80307; 81001; 81002; 85025; 99285; J1815